=== PATIENT | female | born 1960 | race Caucasian/White ===

== ENCOUNTER 2016-06-16 10:42 | Emergency (ER) | payer OTHER, MEDICARE ==
[~2016-06-16 10:42] MED LIST: AMBIEN10 M1 PO; AMBIEN10 MG PO; AMITRIPTYLINE H50 M1 PO; CYMBALTA60 M1 PO; CYMBALTA60 MG PO; DAPTOMYCIN IV; GAVILAX17 G2 PO; GLIPIZIDE XL10 MG PO; HUMALOG100 U/ML SQ; HYDROCODON-ACE1 EA17 PO; LANTUS100 UNITS/ SC; LISINOPRIL2.5 M1 PO; LOPRESSOR100 M1 PO; LOPRESSOR50 M1 PO; MAALOX MAXIMUM355 M1 PO; METFORMIN HCL1000 MG PO; NEURONTIN100 M1 PO; NORVASC5 M2 PO; NOVOLOG100 UNITS/ SC; RENVELA800 M1 PO; SODIUM BICARBO650 M1 PO; SYNTHROID50 MCG PO; SYNTHROID75 MC1 PO; TRILIPIX135 MG PO; ULTRAM50 MG PO
[2016-06-16] MEDS ORDERED: LISINOPRIL2.5 M1 PO (10:51)
[2016-06-16] MEDS ORDERED: NORCO 5-325 TA1 EACH PO (12:26)
== END 2016-06-16 14:18 ==
LOC: EDMED 10:42
DX: S70.01XA Contusion of right hip, initial encounter (principal); S80.11XA Contusion of right lower leg, initial encounter; E11.9 Type 2 diabetes mellitus without complications; I10 Essential (primary) hypertension; E03.9 Hypothyroidism, unspecified; Z79.4 Long term (current) use of insulin; W01.0XXA Fall on same level from slipping, tripping and stumbling without subsequent striking against object, initial encounter; Y92.009 Unspecified place in unspecified non-institutional (private) residence as the place of occurrence of the external cause
CPT/HCPCS: J2270; J2405